=== PATIENT | female | born 1995 | race Caucasian/White ===

== ENCOUNTER 2016-09-27 02:20 | Emergency (ER) | payer OTHER ==
[~2016-09-27 02:20] MED LIST: BACTRIM DS TABL1 TA1 PO; BACTRIM DS TABL1 TAB PO; BACTROBAN22 GM TP; CLEOCIN150 MG PO; CLINDAMYCIN HC300 MG PO; IBUPROFEN PO; KEFLEX PO; KEFLEX500 MG PO; NAPROSYN375 MG PO; NO MEDICATIONS; ORUDIS75 M1 PO; PRENATAL1 TA1 PO; PROMETHAZINE D118 ML PO; TYLENOL #3 PO; ZOFRAN PO
[2016-09-27 02:43] LABS: INFLUENZA A NEG (NEG); INFLUENZA B NEG (NEG)
== END 2016-09-27 03:29 | disposition home or self-care (01) ==
LOC: SED 02:20
PROVIDERS: Emergency Medicine
DX: B34.9 Viral infection, unspecified (principal); Z88.2 Allergy status to sulfonamides
CPT/HCPCS: 87804; 99283

== ENCOUNTER 2017-01-04 13:09 | Emergency (ER) | payer OTHER | END 2017-01-04 14:00 | disposition home or self-care (01) | LOC: SED 13:09 | DX: L03.115 Cellulitis of right lower limb (principal); Z88.2 Allergy status to sulfonamides | CPT/HCPCS: 99283 ==